=== PATIENT | female | born 1995 | race Caucasian/White ===

== ENCOUNTER 2021-11-01 22:05 | Emergency (ER) | payer OTHER ==
[~2021-11-01] VITALS: Ht 167.6 cm; Wt 72.6 kg
[2021-11-01 23:00] VITALS: BP 151/98
[2021-11-01] MEDS ORDERED: AMOX500T2 PO (23:03)
--- NOTE | 2021-11-01 23:03 | NUR ---
Patient discharged to home in stable condition. Written and verbal after care instructions given. Patient verbalizes understanding of instruction.
== END 2021-11-01 23:12 | disposition home or self-care (01) ==
LOC: ER 22:05
DX: H66.91 Otitis media, unspecified, right ear (principal)